=== PATIENT | male | born 1970 | race Two or more races ===

== ENCOUNTER 2022-10-07 10:38 | Emergency (ER) | payer OTHER ==
[~2022-10-07] VITALS: Ht 162.6 cm; Wt 78.8 kg
[2022-10-07 10:45] VITALS: BP 165/109
[2022-10-07] MEDS ORDERED: LANCMIS XX (11:29)
[2022-10-07] MEDS ORDERED: [UNRECOGNIZED DRUG - CODE] XX (11:29)
[2022-10-07] MEDS ORDERED: GLUC1TES63 VI (11:29)
[2022-10-07] MEDS ORDERED: METF-370 PO (11:29)
[2022-10-07] MEDS ORDERED: AMLO-496 PO (11:29)
[2022-10-07] MEDS ORDERED: BLOOMIS XX (11:29)
[2022-10-07] MEDS ORDERED: IBUP400T22 PO (11:53)
== END 2022-10-07 11:14 | disposition home or self-care (01) ==
LOC: ER 10:38
DX: E11.9 Type 2 diabetes mellitus without complications (principal); I10 Essential (primary) hypertension; R42 Dizziness and giddiness; R51.9 Headache, unspecified; Z76.0 Encounter for issue of repeat prescription; Z88.6 Allergy status to analgesic agent

== ENCOUNTER 2022-10-08 19:53 | Inpatient (IN) | payer OTHER ==
[~2022-10-08] VITALS: Ht 160 cm; Wt 79.9 kg
[~2022-10-08 19:53] MED LIST: AMLO-496 PO; BLOOMIS XX; GLUC1TES63 VI; IBUP400T22 PO; LANCMIS XX; METF-370 PO; [UNRECOGNIZED DRUG - CODE] XX
[2022-10-08 20:24] LABS: Urine Bacteria FEW /hpf (None Seen); Urine Blood Negative /uL (Negative); Urine Specific Gravity 1.028 (1.001-1.035); Urine WBC 2 /hpf (0 - 3)
[2022-10-08] MEDS ORDERED: InsuLIN REG 1unit/0.01ml Soln (100units/ml) IV ONE ×2 (20:30→23:45)
[2022-10-08] MEDS ORDERED: SODIUM CHLORIDE 0.9% 1,000 ML IV ONE (20:30)
[2022-10-08 21:48] LABS: Basophils # (auto) 0 10 ^3/uL (0-0.2); Basophils % (auto) 0.5 % (0.0-2.0); Eosinophils # (auto) 0.3 10 ^3/uL (0-0.8); Eosinophils % (auto) 2.9 % (0.0-7.0); Hematocrit 38.5 % (41.0-53.0); Hemoglobin 13.3 g/dL (13.5-17.5); Lymphocytes # (auto) 1.7 10 ^3/uL (0.4-5.4); Lymphocytes % (auto) 18.4 % (10.0-50.0); Mean Corpuscular Hemoglobin 28.8 pg (28.0-32.0); Mean Corpuscular Hgb Conc. 34.6 g/dL (32.0-36.0); Mean Corpuscular Volume 83.3 fL (80.0-100.0); Monocytes # (auto) 0.7 10 ^3/uL (0-1.3); Monocytes % (auto) 7.3 % (0.0-12.0); Neutrophils # (auto) 6.5 10 ^3/uL (1.6-8.6); Neutrophils % (auto) 70.9 % (37.0-80.0); Red Blood Cells 4.62 10^6/uL (4.5-5.90); Red Cell Distribution Width 14.2 % (11.8-14.3); White Blood Cell 9.2 10^3/uL (4.4-10.8)
[2022-10-08 22:05] LABS: Potassium 3.3 mmol/L (3.5-5.1)
[2022-10-08 22:13] LABS: BUN/Creatinine Ratio 19.6 (10.0-20.0); Bilirubin, Total 0.3 mg/dL (0.2-1.0); Total Protein 6.9 g/dL (6.4-8.2)
[2022-10-08] MEDS ORDERED: OXYCODONE W/ ACETAMINOPHEN 5/325MG TABLET PO ONE (22:45)
[2022-10-09] MEDS ORDERED: NITROFURANTOIN 100 mg CAP PO ONE (05:15)
[2022-10-09] MEDS ORDERED: IBUPROFEN 400 MG TAB PO ONE (08:30)
[2022-10-09] MEDS ORDERED: DOCUSATE SOD 100 MG CAP PO PRN (11:30)
[2022-10-09] MEDS ORDERED: ONDANSETRON HCL 4 MG/2 ML VIAL IV PRN (11:30)
[2022-10-09] MEDS ORDERED: DEXTROSE (50%) 50ML SYRG IV PRN (11:30)
[2022-10-09] MEDS ORDERED: MORPHINE SULFATE INJ 2 MG/ml SYRG IV PRN (11:30)
[2022-10-09] MEDS ORDERED: IOHEXOL 300 MG/ML 100ML BOTTLE IJ ONE (11:58)
[2022-10-09] MEDS ORDERED: POTASSIUM CHL 20 Meq TABLET PO ONE (12:00)
[2022-10-09] MEDS: ACCU-CHEK COMFORT CURVE STRIP VI SCH ×3 (13:31→22:00)
[2022-10-09] MEDS: GABAPENTIN 100 MG CAP PO SCH ×2 (13:32→22:57)
[2022-10-09] MEDS: InsuLIN REG 1unit/0.01ml Soln (100units/ml) SC SCH ×2 (13:33→17:39)
[2022-10-09] MEDS: SODIUM CHLORIDE 0.9% 1,000 ML IV SCH ×2 (15:54→19:50)
[2022-10-09 17:50] VITALS: BP 98/75
[2022-10-09 21:33] VITALS: BP_SYST 151; BP_SYST 157; BP_DIAS 101
[2022-10-09] MEDS ORDERED: InsuLIN REG 1unit/0.01ml Soln (100units/ml) SC SCH (22:00)
[2022-10-09 22:33] VITALS: BP 157/101
[2022-10-10] MEDS: SODIUM CHLORIDE 0.9% 1,000 ML IV SCH ×2 (00:59→12:30)
[2022-10-10 05:00] VITALS: BP 143/94
[2022-10-10] MEDS: ACCU-CHEK COMFORT CURVE STRIP VI SCH ×3 (06:46→17:00)
[2022-10-10] MEDS: InsuLIN REG 1unit/0.01ml Soln (100units/ml) SC SCH ×3 (06:49→17:00)
[2022-10-10] MEDS: GABAPENTIN 100 MG CAP PO SCH ×2 (06:52→14:56)
[2022-10-10 07:10] LABS: Basophils # (auto) 0 10 ^3/uL (0-0.2); Basophils % (auto) 0.4 % (0.0-2.0); Eosinophils # (auto) 0.1 10 ^3/uL (0-0.8); Eosinophils % (auto) 1.8 % (0.0-7.0); Hematocrit 37.7 % (41.0-53.0); Hemoglobin 13.5 g/dL (13.5-17.5); Lymphocytes # (auto) 1.9 10 ^3/uL (0.4-5.4); Lymphocytes % (auto) 22.5 % (10.0-50.0); Mean Corpuscular Hemoglobin 28.5 pg (28.0-32.0); Mean Corpuscular Volume 79.2 fL (80.0-100.0); Monocytes # (auto) 0.5 10 ^3/uL (0-1.3); Monocytes % (auto) 6.4 % (0.0-12.0); Neutrophils # (auto) 5.7 10 ^3/uL (1.6-8.6); Neutrophils % (auto) 68.9 % (37.0-80.0); Nucleated Red Blood Cells % 0.1 %; Red Blood Cells 4.75 10^6/uL (4.5-5.90); Red Cell Distribution Width 14.2 % (11.8-14.3); White Blood Cell 8.3 10^3/uL (4.4-10.8)
[2022-10-10 07:27] LABS: Albumin 2.9 g/dL (3.4-5.0); BUN/Creatinine Ratio 19.8 (10.0-20.0); Calcium 8.4 mg/dL (8.5-10.1); Potassium 3.3 mmol/L (3.5-5.1)
[2022-10-10 07:30] LABS: Bilirubin, Total 0.3 mg/dL (0.2-1.0); Total Protein 6.9 g/dL (6.4-8.2)
[2022-10-10 09:00] VITALS: BP 145/95
[2022-10-10] MEDS ORDERED: ENOXAPARIN SOD 40 MG/0.4 ML SYRINGE SC SCH (10:00)
[2022-10-10 13:00] VITALS: BP 145/98
[2022-10-10] MEDS ORDERED: LEVO500T31 PO (14:42)
[2022-10-10] MEDS ORDERED: POTASSIUM EFFERVESENT TAB 25 MEQ PO ONE (14:45)
[2022-10-10] MEDS ORDERED: levoFLOXacin 500 MG TAB PO ONE (14:45)
[2022-10-10 17:11] VITALS: BP 139/84
[2022-10-11] MEDS ORDERED: levoFLOXacin 500 MG TAB PO SCH (10:00)
== END 2022-10-10 18:38 | disposition home or self-care (01) | DRG 420 ==
LOC: EDBD 19:53 → ER 19:53 → OVERFLOW 10-09 11:34 → WEST WING 10-09 21:29
PROVIDERS: ADMIT Nurse Practitioner Family; ATTEND Nurse Practitioner Family
DX: E11.65 Type 2 diabetes mellitus with hyperglycemia (principal); E11.40 Type 2 diabetes mellitus with diabetic neuropathy, unspecified; D62 Acute posthemorrhagic anemia; J18.9 Pneumonia, unspecified organism; E87.6 Hypokalemia; I10 Essential (primary) hypertension; Z20.822 Contact with and (suspected) exposure to COVID-19; Z88.8 Allergy status to other drugs, medicaments and biological substances; Z59.01 Sheltered homelessness
CPT/HCPCS: 36415; 70450; 71045; 71250; 80053; 81001; 82010; 82962; 83036; 83880; 84484; 85025; 87426; 93005; 93970; 96374; G0378; J1815

== ENCOUNTER 2022-10-18 17:47 | Emergency (ER) | payer OTHER ==
[~2022-10-18] VITALS: Ht 175.3 cm; Wt 91.0 kg
[~2022-10-18 17:47] MED LIST changes: +LEVO500T31 PO
[2022-10-18 18:38] LABS: Urine Bacteria NONE SEEN /hpf (None Seen); Urine Blood Negative /uL (Negative); Urine WBC 2 /hpf (0 - 3)
[2022-10-18 19:24] LABS: Basophils # (auto) 0.1 10 ^3/uL (0-0.2); Basophils % (auto) 0.7 % (0.0-2.0); Eosinophils # (auto) 0.3 10 ^3/uL (0-0.8); Eosinophils % (auto) 3.7 % (0.0-7.0); Hematocrit 41.8 % (41.0-53.0); Hemoglobin 14.2 g/dL (13.5-17.5); Lymphocytes # (auto) 2.5 10 ^3/uL (0.4-5.4); Lymphocytes % (auto) 29.8 % (10.0-50.0); Mean Corpuscular Hemoglobin 28.4 pg (28.0-32.0); Mean Corpuscular Volume 83.5 fL (80.0-100.0); Monocytes # (auto) 0.5 10 ^3/uL (0-1.3); Monocytes % (auto) 6.5 % (0.0-12.0); Neutrophils # (auto) 4.9 10 ^3/uL (1.6-8.6); Neutrophils % (auto) 59.3 % (37.0-80.0); Nucleated Red Blood Cells % 0.1 %; Red Cell Distribution Width 14.5 % (11.8-14.3); White Blood Cell 8.3 10^3/uL (4.4-10.8)
[2022-10-18 19:41] LABS: Calcium 9.5 mg/dL (8.5-10.1); Potassium 3.5 mmol/L (3.5-5.1)
[2022-10-18 19:46] LABS: BUN/Creatinine Ratio 22.6 (10.0-20.0); Bilirubin, Total 0.5 mg/dL (0.2-1.0); Total Protein 7.4 g/dL (6.4-8.2)
[2022-10-18] MEDS ORDERED: KETOROLAC TROMETH 30 MG/ML 1ML VIAL IM ONE (23:45)
[2022-10-18] MEDS ORDERED: GLIM-5 PO (23:51)
[2022-10-18] MEDS ORDERED: DICL-163 PO (23:51)
[2022-10-19 01:36] VITALS: BP 146/101
== END 2022-10-19 01:26 | disposition home or self-care (01) ==
LOC: ER 17:47 → EDBD 17:47 → ER 10-19 01:26
DX: E11.65 Type 2 diabetes mellitus with hyperglycemia (principal); I10 Essential (primary) hypertension; Z79.2 Long term (current) use of antibiotics; Z79.1 Long term (current) use of non-steroidal anti-inflammatories (NSAID); Z79.899 Other long term (current) drug therapy; Z88.8 Allergy status to other drugs, medicaments and biological substances
CPT/HCPCS: 36415; 80053; 81001; 82962; 84484; 85025; 96372; 99283; J1885

== ENCOUNTER 2022-10-30 18:29 | Emergency (ER) | payer OTHER ==
[~2022-10-30] VITALS: Ht 160 cm; Wt 79.5 kg
[~2022-10-30 18:29] MED LIST changes: +DICL-163 PO; +GLIM-5 PO
[2022-10-30 19:02] LABS: Basophils # (auto) 0 10 ^3/uL (0-0.2); Basophils % (auto) 0.3 % (0.0-2.0); Eosinophils # (auto) 0.3 10 ^3/uL (0-0.8); Hematocrit 38.7 % (41.0-53.0); Lymphocytes # (auto) 1.5 10 ^3/uL (0.4-5.4); Lymphocytes % (auto) 23.5 % (10.0-50.0); Mean Corpuscular Hgb Conc. 33.6 g/dL (32.0-36.0); Mean Corpuscular Volume 83.3 fL (80.0-100.0); Monocytes # (auto) 0.5 10 ^3/uL (0-1.3); Monocytes % (auto) 8.3 % (0.0-12.0); Neutrophils % (auto) 62.9 % (37.0-80.0); Nucleated Red Blood Cells % 0.1 %; Red Blood Cells 4.64 10^6/uL (4.5-5.90); Red Cell Distribution Width 14.3 % (11.8-14.3); White Blood Cell 6.4 10^3/uL (4.4-10.8)
[2022-10-30 19:18] LABS: Albumin 3.6 g/dL (3.4-5.0); Calcium 8.9 mg/dL (8.5-10.1); Potassium 3.4 mmol/L (3.5-5.1)
[2022-10-30 19:22] LABS: BUN/Creatinine Ratio 22.1 (10.0-20.0); Bilirubin, Total 0.4 mg/dL (0.2-1.0); Total Protein 6.3 g/dL (6.4-8.2)
[2022-10-30] MEDS ORDERED: POLY33504 PO (20:49)
[2022-10-30] MEDS ORDERED: IBUP800T27 PO (20:49)
[2022-10-30] MEDS ORDERED: IBUPROFEN 800 MG TAB PO ONE (21:00)
[2022-10-30] MEDS ORDERED: [UNRECOGNIZED DRUG - CODE] XX (21:49)
[2022-10-30 23:00] VITALS: BP 143/82
== END 2022-10-30 23:29 | disposition home or self-care (01) ==
LOC: EDBD 18:29 → ER 18:29
DX: R07.9 Chest pain, unspecified (principal); F41.9 Anxiety disorder, unspecified; K59.00 Constipation, unspecified; M79.605 Pain in left leg; M79.604 Pain in right leg; E11.9 Type 2 diabetes mellitus without complications; I10 Essential (primary) hypertension; Z59.00 Homelessness unspecified; Z88.8 Allergy status to other drugs, medicaments and biological substances
CPT/HCPCS: 36415; 71045; 80053; 84484; 85025; 93005

== ENCOUNTER 2022-11-05 16:26 | Emergency (ER) | payer MEDICAID, OTHER ==
[~2022-11-05] VITALS: Ht 160 cm; Wt 84.0 kg
[~2022-11-05 16:26] MED LIST changes: +IBUP800T27 PO; +POLY33504 PO; +[UNRECOGNIZED DRUG - CODE] XX
[2022-11-05 19:41] VITALS: BP 123/71
[2022-11-05] MEDS ORDERED: IBUP800T27 PO (19:48)
[2022-11-05] MEDS ORDERED: CYCL-837 PO (19:48)
[2022-11-05] MEDS ORDERED: KETOROLAC TROMETH 30 MG/ML 1ML VIAL IM ONE (20:00)
== END 2022-11-05 20:26 | disposition home or self-care (01) ==
LOC: ER 16:26
DX: M79.605 Pain in left leg (principal); M79.604 Pain in right leg; E11.9 Type 2 diabetes mellitus without complications; I10 Essential (primary) hypertension; Z59.00 Homelessness unspecified; Z88.8 Allergy status to other drugs, medicaments and biological substances
CPT/HCPCS: 96372; 99283; J1885

== ENCOUNTER 2022-12-04 10:17 | Emergency (ER) | payer MEDICAID ==
[~2022-12-04] VITALS: Ht 160 cm; Wt 80.5 kg
[~2022-12-04 10:17] MED LIST changes: -AMLO-496 PO; +AMLO1TAB23 PO; +CYCL-837 PO; +GLIM-38 PO; -GLIM-5 PO; +IBUP-1453 PO; +IBUP-1456 PO; -IBUP400T22 PO; -IBUP800T27 PO
[2022-12-04 10:45] VITALS: BP 147/95
[2022-12-04] MEDS ORDERED: HYDROcodone-ACET 10/325MG TAB PO ONE (11:00)
[2022-12-04] MEDS ORDERED: HYDR-4902 PO (11:21)
== END 2022-12-04 11:39 | disposition home or self-care (01) ==
LOC: ER 10:17
DX: S93.402A Sprain of unspecified ligament of left ankle, initial encounter (principal); E11.9 Type 2 diabetes mellitus without complications; I10 Essential (primary) hypertension; F17.210 Nicotine dependence, cigarettes, uncomplicated; Z87.442 Personal history of urinary calculi; Z59.00 Homelessness unspecified; W18.09XA Striking against other object with subsequent fall, initial encounter; Y93.89 Activity, other specified; Y92.89 Other specified places as the place of occurrence of the external cause; Y99.8 Other external cause status
CPT/HCPCS: 73610

== ENCOUNTER 2024-02-24 23:46 | Emergency (ER) | payer MEDICAID ==
[~2024-02-24] VITALS: Ht 160 cm; Wt 77.1 kg
[~2024-02-24 23:46] MED LIST changes: -DICL-163 PO; +DICL50TA5 PO; +HYDR-4902 PO
[2024-02-25 00:19] LABS: Urine Bacteria FEW /hpf (None Seen); Urine Blood TRACE /uL (Negative); Urine Budding Yeast OCCASIONAL /hpf (None Seen); Urine Clarity Turbid (Clear); Urine Color Light-Yellow (Yellow); Urine Mucus FEW (None Seen); Urine Protein, UAD 1+ (Negative); Urine Specific Gravity 1.012 (1.001-1.035); Urine Sperm PRESENT /hpf (None Seen); Urine Urobilinogen Normal (Negative); Urine WBC 14 /hpf (0 - 3); Urine pH 5.5 (5.0-9.0)
[2024-02-25] MEDS: ONDANSETRON HCL 4 MG/2 ML VIAL IV ONE (00:29)
[2024-02-25] MEDS: SODIUM CHLORIDE 0.9% 1,000 ML IV ONE (00:29)
[2024-02-25 00:34] LABS: Basophils # (auto) 0.1 10 ^3/uL (0-0.2); Basophils % (auto) 0.6 % (0.0-2.0); Eosinophils # (auto) 0 10 ^3/uL (0-0.8); Eosinophils % (auto) 0.3 % (0.0-7.0); Hematocrit 42.8 % (41.0-53.0); Hemoglobin 14.9 g/dL (13.5-17.5); Lymphocytes # (auto) 1.3 10 ^3/uL (0.4-5.4); Lymphocytes % (auto) 13.3 % (10.0-50.0); Mean Corpuscular Hemoglobin 30.8 pg (28.0-32.0); Mean Corpuscular Hgb Conc. 34.9 g/dL (32.0-36.0); Mean Corpuscular Volume 88.4 fL (80.0-100.0); Monocytes # (auto) 0.6 10 ^3/uL (0-1.3); Monocytes % (auto) 5.9 % (0.0-12.0); Neutrophils # (auto) 7.6 10 ^3/uL (1.6-8.6); Neutrophils % (auto) 79.9 % (37.0-80.0); Platelet Count (auto) 202 10^3/uL (140-450); Red Blood Cells 4.84 10^6/uL (4.5-5.90); Red Cell Distribution Width 16.1 % (11.8-14.3); White Blood Cell 9.5 10^3/uL (4.4-10.8)
[2024-02-25 00:46] VITALS: BP 146/75; PULSE 115; TEMP 98.9
[2024-02-25 00:48] VITALS: RESP 18; O2SAT 95
[2024-02-25 00:50] LABS: Alanine Aminotransferase 69 U/L (7-40); Albumin 4.9 g/dL (3.2-4.8); Alkaline Phosphatase 114 U/L (46-116); Anion Gap 9 (5-15); Aspartate Aminotransferase 29 U/L (13-40); BUN/Creatinine Ratio 11.8 (10.0-20.0); Blood Urea Nitrogen 15 mg/dL (9-23); Calcium 10.1 mg/dL (8.7-10.4); Carbon Dioxide 28 mmol/L (20-30); Chloride 108 mmol/L (98-107); Glucose 144 mg/dL (74-106); Lipase 33 U/L (12-53); Potassium 3.6 mmol/L (3.5-5.1); Sodium 145 mmol/L (136-145)
[2024-02-25 00:51] LABS: Bilirubin, Total 0.5 mg/dL (0.2-1.0); Total Protein 7.9 g/dL (5.7-8.2)
== END 2024-02-25 01:37 | disposition home or self-care (01) ==
LOC: ER 23:46
DX: K52.9 Noninfective gastroenteritis and colitis, unspecified (principal); R11.2 Nausea with vomiting, unspecified; I10 Essential (primary) hypertension; E11.9 Type 2 diabetes mellitus without complications; F17.210 Nicotine dependence, cigarettes, uncomplicated; Z88.8 Allergy status to other drugs, medicaments and biological substances; Z79.899 Other long term (current) drug therapy
CPT/HCPCS: 36415; 80053; 81001; 83690; 85025; 96361; 96374; 99283; J2405; J7030